=== PATIENT | male | born 1935 | race Caucasian/White ===

== ENCOUNTER 2019-08-17 11:15 | Day surgery (SDC) | payer OTHER ==
[~2019-08-17] VITALS: Wt 54.5 kg
[~2019-08-17 11:15] MED LIST: ALLO100 PO; Aspir 8181 MG PO; RENAL-VITE TAB0.8 MG PO
[2019-08-17] MEDS ORDERED: AMLO5 (13:04)
[2019-08-17] MEDS ORDERED: ALOGLIPTIN6.25 MG (13:04)
--- NOTE | 2019-08-17 16:00 | NUR ---
PT BACK TO RECOVERY ROOM VIA BED POST PROCEDURE. PURSE STRING SUTURES IN PLACE IN LEFT UPPER ARM FISTULA. PT DENIES CURRENT PAIN OR NEEDS. VSS, CALL LIGHT IN REACH. SPOUSE AT BEDSIDE.
--- NOTE | 2019-08-17 16:44 | NUR ---
PT EATING SNACK AND TAKING PO FLUIDS. SPOUSE REMAINS AT BEDSIDE. VSS. CALL LIGHT IN REACH.
[2019-08-17] MEDS ORDERED: CLOP75 PO (17:14)
--- NOTE | 2019-08-17 17:41 | NUR ---
PURSE STRING SUTURES HAVE BEEN REMOVED FROM LEFT UPPER ARM FISTULA WITHOUT BLEEDING. DR ADAMS AT BEDSIDE SPEAKING WITH PT AND SPOUSE ABOUT PROCEDURE RESULTS.
--- NOTE | 2019-08-17 17:45 | NUR ---
PT OUT TO CAR VIA WHEELCHAIR. VERBALIZED UNDERSTANDING OF DC INSTRUCTIONS AND FOLLOW UP INFORMATION. IV DC'D PRIOR TO DISCHARGE, CATH INTACT.
== END 2019-08-17 22:35 | disposition home or self-care (01) ==
LOC: MHTC 11:15
DX: T82.858A Stenosis of other vascular prosthetic devices, implants and grafts, initial encounter (principal); E11.22 Type 2 diabetes mellitus with diabetic chronic kidney disease; I12.0 Hypertensive chronic kidney disease with stage 5 chronic kidney disease or end stage renal disease; N18.6 End stage renal disease; Z99.2 Dependence on renal dialysis; Y83.2 Surgical operation with anastomosis, bypass or graft as the cause of abnormal reaction of the patient, or of later complication, without mention of misadventure at the time of the procedure; Z88.8 Allergy status to other drugs, medicaments and biological substances; Z79.82 Long term (current) use of aspirin; Z79.899 Other long term (current) drug therapy
CPT/HCPCS: 36902; 36908; 37248; 76937; 99152; 99153; C1725; C1769; C1874; C1887; C1894; J1644; J2250; J3010; J7030; J7040; Q9967